=== PATIENT | female | born 1985 ===

== ENCOUNTER 2016-06-17 13:24 | Emergency (ER) | payer MEDICAID, MEDICARE ==
[2016-06-17 13:39] VITALS: BP 113/80; PULSE 99; RESP 16; TEMP 98.6; O2SAT 100
[2016-06-17 15:47] LABS: BASO # 0.1 K/uL (0.0-0.2); BASO % 0.6 % (0.0-2.0); EOS # 0.1 K/uL (0.0-0.7); EOS % 0.6 % (0.0-4.0); HEMATOCRIT 35.1 % (34.0-47.0); LYMPH # 1.8 K/uL (1.0-4.3); LYMPH % 17.9 % (20.0-40.0); MEAN CELL VOLUME 88.8 fl (81.0-99.0); MEAN CORPUSCULAR HEMOGLOBIN 30.7 pg (27.0-31.0); MEAN CORPUSCULAR HGB CONC 34.6 g/dL (33.0-37.0); MEAN PLATELET VOLUME 11.3 fl (7.2-11.7); MONO # 0.7 K/uL (0.0-0.8); MONO % 6.4 % (0.0-10.0); NEUT # 7.6 K/uL (1.8-7.0); NEUT % 74.5 % (50.0-75.0); RED CELL DISTRIBUTION WIDTH 12.5 % (11.5-14.5); WHITE BLOOD COUNT 10.2 K/uL (4.8-10.8)
[2016-06-17 15:59] LABS: ALB/GLOB RATIO 1.3 (1.0-2.1); ALKALINE PHOSPHATASE 49 U/L (38-126); ALT/SGPT 28 U/L (9-52); AST/SGOT 27 U/L (14-36); BILIRUBIN,TOTAL 0.9 mg/dl (0.2-1.3); BLOOD UREA NITROGEN 7 mg/dl (7-17); CALCIUM 9.6 mg/dL (8.4-10.2); CARBON DIOXIDE 25 mmol/L (22-30); CHLORIDE 104 mmol/L (98-107); GFR AFRICAN-AMERICAN > 60; GLUCOSE,RANDOM 89 mg/dL (65-105); LIPASE 93 U/L (23-300); POTASSIUM 3.7 MMOL/L (3.6-5.0); SODIUM 141 mmol/l (132-148); TOTAL PROTEIN 7.5 G/DL (6.3-8.2)
--- NOTE | 2016-06-17 16:38 | RAD ---
PROCEDURE: Radiographs of the chest and abdomen (obstructive series) HISTORY: pain COMPARISON: No prior. TECHNIQUE: AP radiograph of the chest, with upright and supine radiographs of the abdomen. FINDINGS: CHEST: Lungs: CThe the lungs are well inflated and clear. Cardiovascular: Normal size heart. No pulmonary vascular congestion. Pleura: No pleural fluid. No pneumothorax. Other findings: None. ABDOMEN AND PELVIS: Bowel: There is nonobstructive bowel gas pattern. There is oral contrast in the colon. . Free air: None. Bones: Unremarkable. Other findings: None. IMPRESSION: No active pulmonary disease. Nonobstructive bowel-gas pattern.
[2016-06-17 16:53] LABS: RBC URINE 52 /hpf (0-3); URINE BACTERIA RARE (<OCC); URINE BILIRUBIN NEGATIVE (NEGATIVE); URINE BLOOD LARGE (NEGATIVE); URINE COLOR YELLOW (YELLOW); URINE GLUCOSE (UA) NEG (Normal); URINE KETONE 20 mg/dL (NEGATIVE); URINE LEUKOCYTE ESTERASE NEG Leu/uL (Negative); URINE PROTEIN 30 mg/dL (NEGATIVE); URINE UROBILINOGEN 0.2-1.0 mg/dL (0.2-1.0); WBC URINE 3 /hpf (0-5)
--- NOTE | 2016-06-17 18:55 | ED PDOC ---
HPI: General Adult Time Seen by Provider: 06/17/16 14:42 Chief Complaint (Nursing): Abdominal Pain History Per: Patient Additional Complaint(s): Pt. states for the past 3 days she's had LLQ abdominal pain associated with constipation. Pt. states she was seen in [place] ED this morning and had CT and lab work done all of which were normal. Pt. with CT results which was normal. Further states that due to continued pain and lack of BM she returned to ED. Denies fever, N/V/D, melena, hematochezia, BRBPR, hematemesis. Past Medical History Reviewed: Historical Data, Nursing Documentation, Vital Signs Vital Signs: Last Vital Signs Temp 98.6 F 06/17/16 13:35 Pulse 99 H 06/17/16 13:35 Resp 16 06/17/16 13:35 BP 113/80 06/17/16 13:35 Pulse Ox 100 06/17/16 18:57 - Medical History PMH: Denies: Chronic Kidney Disease - Surgical History Other surgeries: liposuction - Family History Family History: States: No Known Family Hx - Home Medications Home Medications: Ambulatory Orders Medication Instructions Recorded No Known Home Med 06/17/16 - Allergies Allergies/Adverse Reactions: Allergies Allergy/AdvReac Type Severity Reaction Status Date / Time No Known Allergies Allergy Verified 06/17/16 13:35 Review of Systems ROS Statement: Except As Marked, All Systems Reviewed And Found Negative Gastrointestinal: Positive for: Abdominal Pain Physical Exam - Reviewed Nursing Documentation Reviewed: Yes Vital Signs Reviewed: Yes - Physical Exam Appears: Positive for: Well, Non-toxic, No Acute Distress Head Exam: Positive for: ATRAUMATIC, NORMAL INSPECTION, NORMOCEPHALIC Skin: Positive for: Normal Color, Warm. Negative for: Rash Eye Exam: Positive for: EOMI, Normal appearance, PERRL ENT: Positive for: Normal ENT Inspection Neck: Positive for: Normal, Painless ROM Cardiovascular/Chest: Positive for: Regular Rate, Rhythm Respiratory: Positive for: CNT, Normal Breath Sounds Gastrointestinal/Abdominal: Positive for: Normal Exam, Bowel Sounds, Soft. Negative for: Tenderness Back: Positive for: Normal Inspection Extremity: Positive for: Normal ROM Neurologic/Psych: Positive for: Alert, Oriented - Laboratory Results Result Diagrams: 06/17/16 15:00 06/17/16 15:00 - ECG O2 Sat by Pulse Oximetry: 100 - Progress ED Course And Treament: Labs ordered. Obstructive series: No obstruction; contrast noted Pt. evaluated by Dr. Anne who performed rectal with Deborah MONTAGUE present as communications manager. No impaction. Lacutolose and fleet enema provided. Pt. with BM in ED. Pt. reports that she has been feeling anxious and uneasy for the past several days. States that she does have a hx of anxiety. Denies SI/HI, hallucinations. Crisis eval ordered. Disposition - Clinical Impression Clinical Impression: Constipation, Anxiety - Patient ED Disposition Is Patient to be Admitted: Transfer of Care (Signed out to Miller NICHOLE pending crisis eval.) - Disposition Disposition Time: 20:02 Condition: STABLE
--- NOTE | 2016-06-17 21:24 | ED PDOC ---
- Laboratory Results Result Diagrams: 06/17/16 15:00 06/17/16 15:00 - ECG O2 Sat by Pulse Oximetry: 100 - Progress ED Course And Treament: case transferred to scenario writer . pt pending crisis eval for anxiety. pt with hx of schizophrenia. pt also complained of abd cramping CT scan and xray performed earlier/today-negative. Pt moved BM in ED with enema and lactulose Medical Decision Making Medical Decision Making: pt was cleared by crisis -pot was offered admission however declined at this time states she will f.u as an outtpt. pt no longer with abd cramping. dx with constipation-advised to f.u with GI and Rx colace from constipation. Disposition - Clinical Impression Clinical Impression: Constipation, Anxiety, Schizophrenia - POA Present On Arrival: None - Disposition Disposition: Routine/Home Disposition Time: 21:25 Condition: STABLE Prescriptions: Docusate [Colace] 100 mg PO BID #14 cap Instructions: Constipation (ED), Schizophrenia (ED) Progress Note - Review of Symptoms General: No: Chills, Night Sweats, Fatigue, Malaise, Appetite, Other HEENT: No: Head Aches, Visual Changes, Eye Pain, Ear Pain, Dysphasia, Sinus Congestion, Post Nasal Drip, Sore Throat, Other Pulmonary: No: Dyspnea, Cough, Pleuritic Chest Pain, Other Cardiovascular: No: Chest Pain, Palpitations, Orthopnea, Paroxysmal Noc. Dyspnea , Edema, Light Headedness, Other Gastrointestinal: No: Nausea, Vomiting, Abdominal Pain, Diarrhea, Constipation, Melena, Hematochezia, Other Genitourinary: No: Dysuria, Frequency, Incontinence, Hematuria, Retention, Other Musculoskeletal: No: Muscle Pain, Joint Pain, Other Neurological: No: Weakness, Numbness, Incoordination, Change in speech, Confusion, Seizures, Other
== END 2016-06-17 21:40 | disposition home or self-care (01) ==
LOC: H.ER 13:24
DX: R10.32 Left lower quadrant pain (principal); K59.00 Constipation, unspecified; F20.9 Schizophrenia, unspecified; F41.9 Anxiety disorder, unspecified